=== PATIENT | female | born 1935 | race Caucasian/White ===

== ENCOUNTER → 2016-05-16 | Outpatient (CLI) | payer MEDICARE, BC ==
[~2016-05-16] MED LIST: ALLEGRA180 MG PO; ASPIR-LOW81 MG PO; Evista; FISH OIL CONC1000 MG PO; FOSAMAX PO; Glucosamine; LISINOPRIL5 MG PO; MVI; SYNTHROID0.175 MG PO; TYLENOL 500MG500 MG PO; [UNRECOGNIZED DRUG - OTHER]
== END ==
LOC: MC.RAD 10:00
DX: Z12.31 Encounter for screening mammogram for malignant neoplasm of breast (principal)

== ENCOUNTER → 2016-12-06 | Outpatient (CLI) | payer MEDICARE, BC | LOC: COL.RAD 14:29 | DX: Z01.818 Encounter for other preprocedural examination (principal); M17.12 Unilateral primary osteoarthritis, left knee ==

== ENCOUNTER → 2017-08-01 | Outpatient (CLI) | payer MEDICARE, BC | LOC: MC.RAD 11:35 | DX: Z12.31 Encounter for screening mammogram for malignant neoplasm of breast (principal) ==

== ENCOUNTER → 2018-08-02 | Outpatient (CLI) | payer MEDICARE, BC | LOC: MC.RAD 16:57 | DX: Z12.31 Encounter for screening mammogram for malignant neoplasm of breast (principal) ==

== ENCOUNTER → 2019-02-14 | Outpatient (CLI) | payer MEDICARE, BC | LOC: COL.RAD 09:38 | DX: T84.033A Mechanical loosening of internal left knee prosthetic joint, initial encounter (principal); M25.562 Pain in left knee | CPT/HCPCS: A9503 ==

== ENCOUNTER → 2021-01-26 | Outpatient (CLI) | payer MEDICARE, BC | LOC: COL.RAD 07:49 | DX: N28.1 Cyst of kidney, acquired (principal); N28.89 Other specified disorders of kidney and ureter; N39.46 Mixed incontinence ==

== ENCOUNTER 2021-07-10 12:58 | Emergency (ER) | payer MEDICARE, BC ==
[~2021-07-10] VITALS: Ht 157.5 cm; Wt 74.1 kg
[2021-07-10] MEDS ORDERED: FLEXERIL5 MG PO (15:18)
[2021-07-10 15:33] VITALS: BP 188/85; PULSE 59; TEMP 98.3
== END 2021-07-10 15:42 | disposition home or self-care (01) ==
LOC: COL.ER 12:58
DX: S76.012A Strain of muscle, fascia and tendon of left hip, initial encounter (principal); Z88.6 Allergy status to analgesic agent; X50.9XXA Other and unspecified overexertion or strenuous movements or postures, initial encounter
CPT/HCPCS: J1885

== ENCOUNTER 2023-07-13 10:50 | Outpatient (CLI) | payer MEDICARE, BC ==
[~2023-07-13] VITALS: Ht 157.5 cm; Wt 67.1 kg
[~2023-07-13 10:50] MED LIST changes: -ASPIR-LOW81 MG PO; +ASPIRIN 81M81 MG/TA2 PO; -FISH OIL CONC1000 MG PO; +FISH OIL CONCEN1 SG2 PO; +FLEXERIL5 MG PO; +GLUCOSAMINE & C1 CA2 PO; -Glucosamine; +SYNTHROID0.1 MG/TAB PO; -SYNTHROID0.175 MG PO
[2023-07-13] MEDS ORDERED: Denosumab 60 MG/ML SYRINGE SQ ONE (11:15)
[2023-07-13 11:20] VITALS: BP 130/78; PULSE 52; TEMP 97.9
[2023-07-13] MEDS ORDERED: NORVASC 5MG5 MG/TAB PO (11:26)
[2023-07-13] MEDS ORDERED: AVAPRO300 M1 PO (11:27)
== END 2023-07-13 11:42 ==
LOC: EUO 10:50
DX: M81.0 Age-related osteoporosis without current pathological fracture (principal)
CPT/HCPCS: J0897

== ENCOUNTER → 2024-02-16 | Outpatient (CLI) | payer MEDICARE, BC ==
[~2024-02-16] MED LIST changes: +AVAPRO300 M1 PO; +CEQUA1 EACH OP; -FISH OIL CONCEN1 SG2 PO; +Gadoterate 15 ML VIAL IV ONE; +MASON NATURAL1200 MG PO; +NORVASC 5MG5 MG/TAB PO; -[UNRECOGNIZED DRUG - OTHER]; +[UNRECOGNIZED DRUG - OTHER] PO; +tumeric PO
== END ==
LOC: COL.RAD 09:15
DX: G31.9 Degenerative disease of nervous system, unspecified (principal)
CPT/HCPCS: A9575